=== PATIENT | male | born 1960 | race Caucasian/White ===

== ENCOUNTER → 2018-05-28 07:26 | Outpatient (CLI) | payer MEDICAID | END | disposition home or self-care (01) | LOC: D.MRI 07:26 | DX: M25.512 Pain in left shoulder (principal) ==

== ENCOUNTER 2018-10-26 09:18 | Emergency (ER) | payer MEDICAID ==
[~2018-10-26] VITALS: Ht 175.3 cm; Wt 77.3 kg
[2018-10-26 09:21] VITALS: Ht 175.3 cm; Wt 77.3 kg
[2018-10-26] MEDS ORDERED: XANAX0.25 MG PO (09:23)
[2018-10-26] MEDS ORDERED: HYDROCODON-ACE1 EA10 PO (09:24)
[2018-10-26 10:11] LABS: BASOPHILS 0.7 % (0-2); EOSINOPHILS 1.6 % (0-7); HEMATOCRIT 46.1 % (42.0-54.0); HEMOGLOBIN 16.1 g/dL (13.5-17.5); IMMATURE GRANULOCYTES 0.9 % (0-5); LYMPHOCYTES 23.5 % (15-50); MCH 31.3 pg (26.0-34.0); MCHC 34.9 g/dL (31.0-37.0); MCV 89.7 fL (80.0-100.0); MEAN PLATELET VOLUME 9.8 fL (7.4-10.4); MONOCYTES 7.5 % (2-11); NEUTROPHILS 65.8 % (40-80); PLATELET COUNT 212 10x3/uL (130-400); RBC 5.14 10x6/uL (4.20-6.10); RDW 13.3 % (11.5-14.5); WBC 8.1 10x3/uL (4.8-10.8)
[2018-10-26 10:13] LABS: ALBUMIN 3.5 g/dL (3.4-5.0); ALKALINE PHOSPHATASE 86 U/L (46-116); ALT (SGPT) 28 U/L (10-68); BILIRUBIN - TOTAL 0.25 mg/dL (0.2-1.3); CALC OSMOLALITY 277 mosm/kg (275-300); CARBON DIOXIDE 25.2 mmol/L (21.0-32.0); CHLORIDE - SERUM 105 mmol/L (98-107); CREATININE - SERUM 0.9 mg/dL (0.6-1.3); GLUCOSE 106 mg/dL (74-106); POTASSIUM - SERUM 4.2 mmol/L (3.5-5.1); PROTEIN - SERUM 6.7 g/dL (6.4-8.2); SODIUM 139 mmol/L (136-145); UREA NITROGEN 13 mg/dL (7-18); eGFR NON AFRICAN AMERICAN > 90 mL/min (90-120)
[2018-10-26 10:17] LABS: AMYLASE - SERUM 23 U/L (25-115); LIPASE 96 U/L (73-393); TROPONIN-I < 0.017 ng/mL (0.000-0.060)
[2018-10-26 10:40] LABS: APPEARANCE CLEAR (CLEAR); BILIRUBIN NEGATIVE (NEGATIVE); COLOR YELLOW (YELLOW); GLUCOSE NEGATIVE (NEGATIVE); KETONE NEGATIVE (NEGATIVE); NITRITE NEGATIVE (NEGATIVE); PROTEIN NEGATIVE (NEGATIVE); SPECIFIC GRAVITY 1.015 (1.005-1.020); UROBILINOGEN NORMAL (NORMAL)
[2018-10-26 12:36] VITALS: BP 158/82
== END 2018-10-26 12:29 | disposition home or self-care (01) ==
LOC: D.ER 09:18
PROVIDERS: Family Medicine
DX: R10.9 Unspecified abdominal pain (principal); N32.89 Other specified disorders of bladder; K40.00 Bilateral inguinal hernia, with obstruction, without gangrene, not specified as recurrent

== ENCOUNTER → 2018-11-17 22:09 | Outpatient (CLI) | payer MEDICAID ==
[2018-10-26 09:21] VITALS: BMI 25.1
[~2018-11-17 22:09] MED LIST: FLUTICASONE PRO16 GM; HYDROCODON-ACE1 EA10 PO; IBUPROFEN800 MG; PHENERGAN25 M1 PO; ROXICODONE15 MG PO; XANAX0.25 MG PO
[2018-12-12 19:00] VITALS: BMI 26.6
== END | disposition home or self-care (01) ==
LOC: D.LABREF 22:09
PROVIDERS: ATTEND Urology
DX: D49.4 Neoplasm of unspecified behavior of bladder (principal)

== ENCOUNTER 2018-11-30 09:05 | Day surgery (SDC) | payer MEDICAID ==
[2018-11-29 14:12] LABS: ANION GAP 12.4 mmol/L (8-16); CALCIUM 8.8 mg/dL (8.5-10.1); CARBON DIOXIDE 30.1 mmol/L (21.0-32.0); CREATININE - SERUM 1.1 mg/dL (0.6-1.3); POTASSIUM - SERUM 4.5 mmol/L (3.5-5.1)
[2018-11-29 14:34] LABS: BASOPHILS 0.4 % (0-2); EOSINOPHILS 2.2 % (0-7); HEMATOCRIT 48.9 % (42.0-54.0); HEMOGLOBIN 16.9 g/dL (13.5-17.5); IMMATURE GRANULOCYTES 2.1 % (0-5); LYMPHOCYTES 20.5 % (15-50); MCH 31.5 pg (26.0-34.0); MCHC 34.6 g/dL (31.0-37.0); MCV 91.1 fL (80.0-100.0); MEAN PLATELET VOLUME 10.4 fL (7.4-10.4); MONOCYTES 6.4 % (2-11); NEUTROPHILS 68.4 % (40-80); PLATELET COUNT 209 10x3/uL (130-400); RBC 5.37 10x6/uL (4.20-6.10); RDW 13.9 % (11.5-14.5); WBC 10.3 10x3/uL (4.8-10.8)
[~2018-11-30] VITALS: Ht 175.3 cm; Wt 81.2 kg
[~2018-11-30 09:05] MED LIST changes: -PHENERGAN25 M1 PO; -ROXICODONE15 MG PO
[2018-11-30 09:43] VITALS: BP 113/83; Ht 175.3 cm; Wt 81.2 kg
[2018-11-30] MEDS ORDERED: ROXICODONE15 MG PO (15:06)
[2018-11-30] MEDS ORDERED: PHENERGAN25 M1 PO (15:30)
--- NOTE | 2018-11-30 15:46 | NUR ---
DR FIGUEREDO IN ROOM AT 1519 TIME OUT DONE 1520, JEFERSON GREER, CHAYO BLANCO, PATIENT PREPPED WITH BETADINE PREP SOLUTION- SATURNINO, PERCY.
--- NOTE | 2018-12-01 09:03 | OP ---
PATIENT NAME: ELIZ LEE MEDICAL RECORD: [id number] :64 LOCATION:D.OPS ADMISSION DATE: SURGEON: ADAIR FIGUEREDO MD DATE OF OPERATION: 11/30/2018 SURGEON: Adair Figueredo MD ANESTHESIA: General anesthesia by Alvarez Qiu CRNA DIAGNOSIS: Bladder diverticulum. PROCEDURE: Cystoscopy. FINDINGS: Obstructive BPH with lateral lobe hyperplasia and a tall bladder neck. No median lobe. Single ureteral orifices bilaterally. Anterior bladder wall diverticulum was seen, but there was no bladder tumor. BLOOD LOSS: None. CLINICAL HISTORY: This is a 58-year-old male who had a CT scan of abdomen and pelvis, which was performed for right upper quadrant abdominal pain. He was found to have abdominal hernias as well as an anterior bladder wall diverticulum. The wall of the bladder diverticulum was somewhat thickened and there was a suspicion that there may be a bladder tumor in this area. Dr. Khan is repairing the patient's hernias today. Under the same anesthesia, I will perform cystoscopy to check for the presence of any bladder tumors. If bladder tumors were seen, then they will be resected. DESCRIPTION OF PROCEDURE: The patient has already had Dr. Khan's surgery at this time. He has had IV antibiotics given to him preoperatively. He is under general anesthesia. He was placed into dorsal lithotomy position and prepped and draped. A 17-Divehi cystoscope was introduced into the urethra. Findings are as outlined above. The bladder was then emptied through the scope sheath completely and then the scope was removed. The patient was awakened and brought to the recovery room. TRANSINT:[id number] Voice Confirmation ID: [id number] DOCUMENT ID: [id number] ADAIR FIGUEREDO MD at 0903 CC: [id number] DICTATION DATE: 11/30/18 1536 BRASS CHASER: 11/30/18 1927 [facility] 11/30/18 [id number] [place] [address]
--- NOTE | 2018-12-02 11:36 | OP ---
PATIENT NAME: ELIZ LEE MEDICAL RECORD: [id number] :64 LOCATION:[facility] ADMISSION DATE: SURGEON: HECTOR BALL MD DATE OF OPERATION: 11/30/2018 PREOPERATIVE DIAGNOSES: 1. Bilateral inguinal hernias. 2. Ventral hernia. 3. Bladder mass. 4. Tobacco dependence syndrome. POSTOPERATIVE DIAGNOSES: 1. Bilateral inguinal hernias. 2. Ventral hernia. 3. Bladder mass. 4. Tobacco dependence syndrome. PROCEDURES: 1. Bilateral inguinal hernia repairs with medium PHS mesh. 2. Ventral hernia repair. SURGEON: Hector Ball MD REPORT OF PROCEDURE: The patient's abdomen was prepped and draped in sterile fashion. A right inguinal hernia was approached first. An oblique incision was made above the inguinal ligament and electrocautery was used to dissect through the subcutaneous tissues to the external oblique fascia. This external oblique fascia was opened up to the external ring using electrocautery. A [place] was then placed around the spermatic cord. The ilioinguinal nerve was found and high ligated. We then dissected a large cord lipoma and freed from the spermatic cord and high ligated this with 3-0 silk. The patient had a smaller hernia defect that was indirect. This was dissected from the spermatic cord and pushed back into the abdominal cavity. We then made an opening in the inguinal floor and placed a medium PHS mesh in the preperitoneal space of Retzius. This mesh was then sutured down on all sides using interrupted #0 Vicryls. We irrigated out the wound with normal saline and assured there was no bleeding. The external oblique fascia was closed with running 2-0 Vicryl, Jacqueline's was closed with interrupted 3-0 Vicryl, and skin was closed with running subcutaneous 5-0 Monocryl. A 7 mL of 1% lidocaine with epi was infused into the tissues. We then approached the umbilicus. A semicircular incision was made on the inferior aspect of the umbilicus. Electrocautery was used to dissect through the subcutaneous tissues. We encountered a small hernia sac. We penetrated through this hernia sac and there was noted to be fat containing. We took the hernia sac down to the fascial edges and measured it out at just over 1 cm in size. We cleared off the fascial edges and then reapproximated these transversely using interrupted #0 Prolenes times 4. The umbilicus was then tacked down to the fascia using a single interrupted 3-0 Vicryl and the subcutaneous tissues were reapproximated with interrupted 3-0 Vicryl. The skin was closed with running subcutaneous 5-0 Monocryl. We infused a total of 8 mL of 0.25% Marcaine plain to the surrounding tissues. Finally, we approached the left inguinal hernia. An oblique incision was made above the inguinal ligament and electrocautery was used to dissect through the subcutaneous tissues to the external oblique fascia. This fascia was opened up to the external ring using electrocautery. The ilioinguinal nerve was found and high ligated. The spermatic cord was elevated and a [place] was placed around it. The patient had OPERATIVE REPORT [id number] ELIZ LEE a very large cord lipoma, which was high ligated with 3-0 silk. The patient also had a large direct hernia defect with a lot of fatty tissue within it and no bowel. We were able to push this back into the abdominal cavity. We then opened this up and opened the preperitoneal space of Retzius. A medium PHS mesh was inserted and sutured down on all sides using multiple interrupted #0 Vicryls. We then irrigated out the wound with normal saline and assured there was no sign of any active bleeding. The external oblique fascia was closed using running 2-0 Vicryl, Jacqueline's was closed with interrupted 3-0 Vicryl, and skin was closed with running subcutaneous 5-0 Monocryl. An 8 mL of 1% lidocaine with epinephrine was infused into the surrounding tissues. We then dressed all of the wounds appropriately. COMPLICATIONS: None. CONDITION: Stable. ANESTHESIA: General endotracheal and local. BLOOD LOSS: 50 mL. TRANSINT:[id number] Voice Confirmation ID: [id number] DOCUMENT ID: [id number] HECTOR BALL MD at 1136 CC: [id number] [place] [id number] DICTATION DATE: 11/30/18 1513 ETHANOL OPERATIONS MANAGER: 11/30/18 1855 [facility] 11/30/18 [address] [place] [address]
== END 2018-11-30 17:55 | disposition home or self-care (01) ==
LOC: D.OPS 09:05 → D.PAN 13:15 → D.OPS 17:55
PROVIDERS: ATTEND Surgery
DX: K40.20 Bilateral inguinal hernia, without obstruction or gangrene, not specified as recurrent (principal); K43.9 Ventral hernia without obstruction or gangrene; N32.3 Diverticulum of bladder; F17.200 Nicotine dependence, unspecified, uncomplicated; D17.6 Benign lipomatous neoplasm of spermatic cord; N40.1 Benign prostatic hyperplasia with lower urinary tract symptoms; N13.8 Other obstructive and reflux uropathy

== ENCOUNTER 2018-12-12 18:56 | Emergency (ER) | payer MEDICAID ==
[~2018-12-12] VITALS: Ht 175.3 cm; Wt 81.8 kg
[~2018-12-12 18:56] MED LIST changes: +PHENERGAN25 M1 PO; +ROXICODONE15 MG PO
[2018-12-12 19:00] VITALS: Ht 175.3 cm; Wt 81.8 kg
[2018-12-12 19:27] LABS: HEMATOCRIT 44.7 % (42.0-54.0); HEMOGLOBIN 15.2 g/dL (13.5-17.5); IMMATURE GRANULOCYTES 2.7 % (0-5); PLATELET COUNT 237 10x3/uL (130-400); RBC 4.91 10x6/uL (4.20-6.10); RDW 14.1 % (11.5-14.5); WBC 10.9 10x3/uL (4.8-10.8)
[2018-12-12 19:34] LABS: APTT 25.7 SECONDS (22.8-39.4); INR 0.91 (0.85-1.17); PROTIME 11.7 SECONDS (11.6-15.0)
[2018-12-12 19:49] LABS: ALBUMIN 3.4 g/dL (3.4-5.0); ALKALINE PHOSPHATASE 97 U/L (46-116); ALT (SGPT) 19 U/L (10-68); BILIRUBIN - TOTAL 0.22 mg/dL (0.2-1.3); CALC OSMOLALITY 288 mosm/kg (275-300); CALCIUM 8.8 mg/dL (8.5-10.1); CARBON DIOXIDE 27.1 mmol/L (21.0-32.0); CHLORIDE - SERUM 106 mmol/L (98-107); CREATININE - SERUM 0.8 mg/dL (0.6-1.3); GLUCOSE 98 mg/dL (74-106); POTASSIUM - SERUM 4.2 mmol/L (3.5-5.1); PROTEIN - SERUM 6.2 g/dL (6.4-8.2); SODIUM 143 mmol/L (136-145); UREA NITROGEN 23 mg/dL (7-18); eGFR NON AFRICAN AMERICAN > 90 mL/min (90-120)
[2018-12-12 20:00] LABS: CKMB 0.6 U/L (0.0-3.6); CREATINE KINASE 44 UL (21-232)
[2018-12-12 20:05] LABS: TROPONIN-I < 0.017 ng/mL (0.000-0.060)
[2018-12-12 20:45] LABS: BASOPHILS 1 % (0-2); EOSINOPHILS 6 % (0-7); LYMPHOCYTES 27 % (15-50); MONOCYTES 5 % (2-11); NEUTROPHILS 59 % (40-80); PLATELET ESTIMATE NORMAL
[2018-12-12 20:46] LABS: ROULEAUX OCC; TEAR DROP CELLS OCC
[2018-12-12 20:54] VITALS: BP 122/84
== END 2018-12-12 20:58 | disposition home or self-care (01) ==
LOC: D.ER 18:56
PROVIDERS: Family Medicine
DX: R07.89 Other chest pain (principal)

== ENCOUNTER 2019-03-22 11:35 | Outpatient (CLI) | payer MEDICAID ==
[~2019-03-22] VITALS: Ht 175.3 cm; Wt 83.5 kg
[~2019-03-22 11:35] MED LIST changes: +CHANTIX 1 MG TAB1 MG PO; +FLOMAX0.4 MG PO; +XANAX1 MG PO
[2019-03-22 12:53] VITALS: BP 114/81; Ht 175.3 cm; Wt 83.5 kg
--- NOTE | 2019-03-22 17:34 | NUR ---
1715 PT ASKED WHEN HIS SURGERY WOULD TAKE PLACE AND IS TIRED OF WAITING, FEELS LIKE HE HAS BEEN PATIENT AND HAS WAITED LONG ENOUGH. HE WAS TOLD HE IS NEXT BUT DOES NOT WANT TO WAIT ANY LONGER AND WANTS TO LEAVE AND RESCHEDULE. IV DC'D WITH CATH INTACT. RELEASED AMB WITH HIS RIDE.
== END 2019-03-22 11:36 | disposition home or self-care (01) ==
LOC: D.OPS 11:35 → D.PAN 16:45 → D.OPS 16:45 → EDSTATUS 17:45 → D.PAN 17:45 → D.OPS 18:00 → D.PAN 18:00
PROVIDERS: ATTEND Orthopaedic Surgery
DX: S83.231A Complex tear of medial meniscus, current injury, right knee, initial encounter (principal)

== ENCOUNTER 2019-12-18 11:41 | Emergency (ER) | payer MEDICAID ==
[2019-12-18 11:45] VITALS: Ht 175.3 cm
[2019-12-18] MEDS ORDERED: VIBRAMYCIN 100100 MG PO (13:48)
[2019-12-18] MEDS ORDERED: NAPROSYN500 MG PO (13:48)
[2019-12-18] MEDS ORDERED: TYLENOL W/CODEI1 TAB PO (13:48)
[2019-12-18 19:30] VITALS: BP 121/79
== END 2019-12-18 15:35 | disposition home or self-care (01) ==
LOC: D.ER 11:41
DX: S69.92XA Unspecified injury of left wrist, hand and finger(s), initial encounter (principal); S61.213A Laceration without foreign body of left middle finger without damage to nail, initial encounter; W45.8XXA Other foreign body or object entering through skin, initial encounter; Y93.9 Activity, unspecified; Y92.9 Unspecified place or not applicable; S61.215A Laceration without foreign body of left ring finger without damage to nail, initial encounter